=== PATIENT | male | born 1985 ===

== ENCOUNTER 2016-09-24 16:32 | Emergency (ER) | payer SELFPAY ==
[2016-09-24 16:32] VITALS: BMI 21.9
[2016-09-24 16:40] VITALS: BP 136/79; PULSE 77; RESP 18; TEMP 98.5; O2SAT 100
--- NOTE | 2016-09-24 17:48 | ED PDOC ---
HPI: General Adult Time Seen by Provider: 09/24/16 16:42 Chief Complaint (Nursing): ENT Problem Chief Complaint (Provider): Thyroid mass History Per: Patient History/Exam Limitations: no limitations Onset/Duration Of Symptoms: Days (x5) Current Symptoms Are (Timing): Still Present Additional History Per: Patient Additional Complaint(s): Navneet Siddiqui, a 31 years old male, sent by PMD (Jerrod Castillo) to the ED on 09/24/2016 for evaluation of a thyroid/throat mass. Reports the mass has been getting bigger over the past 5 days and difficulty swallowing solids and liquids. Denies fever, chest pain, shortness of breath or sore throat. Past Medical History Reviewed: Historical Data, Nursing Documentation, Vital Signs Vital Signs: Last Vital Signs Temp 98.5 F 09/24/16 16:38 Pulse 77 09/24/16 16:38 Resp 18 09/24/16 16:38 BP 136/79 09/24/16 16:38 Pulse Ox 100 09/24/16 21:35 - Medical History PMH: No Chronic Diseases - Surgical History Surgical History: No Surg Hx - Family History Family History: States: Unknown Family Hx - Social History Current smoker - smoking cessation education provided: No Ex-Smoker (has not smoked in the last 12 months): No Alcohol: None Drugs: Denies - Immunization History Hx Tetanus Toxoid Vaccination: No Hx Influenza Vaccination: No Hx Pneumococcal Vaccination: No - Home Medications Home Medications: Ambulatory Orders Medication Instructions Recorded Amoxicillin 875 mg PO BID #20 tablet 09/24/16 Naproxen [Naprosyn] 500 mg PO BID PRN #15 tablet 09/24/16 - Allergies Allergies/Adverse Reactions: Allergies Allergy/AdvReac Type Severity Reaction Status Date / Time No Known Allergies Allergy Verified 09/24/16 16:36 Review of Systems ROS Statement: Except As Marked, All Systems Reviewed And Found Negative ENT: Positive for: Other (thyroid/throat mass) Physical Exam - Reviewed Nursing Documentation Reviewed: Yes Vital Signs Reviewed: Yes - Physical Exam Appears: Positive for: Well, Non-toxic, No Acute Distress Skin: Positive for: Normal Color, Warm, DRY Eye Exam: Positive for: EOMI, Normal appearance, PERRL ENT: Positive for: Normal ENT Inspection, Pharynx Is (clear), TM Is/Are (intact , no erythema, no discharge, no fluid level), Other (no drooling, able to handle secretions). Negative for: Pharyngeal Erythema, Tonsillar Exudate, Tonsillar Swelling Neck: Positive for: Painless ROM. Negative for: Normal (enlarged anterior neck area, TTP, no erythema, no edema, no induration) Cardiovascular/Chest: Positive for: Regular Rate, Rhythm Respiratory: Positive for: Normal Breath Sounds. Negative for: Respiratory Distress Gastrointestinal/Abdominal: Positive for: Normal Exam, Bowel Sounds, Soft Back: Positive for: Normal Inspection Neurologic/Psych: Positive for: Alert, Oriented - Laboratory Results Result Diagrams: 09/24/16 17:45 09/24/16 17:45 - ECG O2 Sat by Pulse Oximetry: 100 - CT Scan/US CT neck Other Rad Studies (CT/US): Radiology Report Reviewed (Mild swelling of the left palatine tonsils, which could be due to mild tonsillitis. Recommend clinical correlation. No evidence of peritonsillar abscess. Otherwise, no evidence of significant acute process.) Thyroid ultrasound Other Rad Studies (CT/US): Radiology Report Reviewed (Unremarkable sonographic appearance of the thyroid gland. No focal nodules or significant thyromegaly noted. ) Medical Decision Making Medical Decision Makin:42 Initial Impression: Thyroid mass, Thyroiditis Initial Plan: * Thyroid US * CMP, CBC * PTT, Prothrombin time * TSH, T3, T4 * UA Scribe Attestation: Documented by Lorene Nair, acting as a scribe for Maria De Jesus Brady MD. Provider Scribe Attestation: All medical record entries made by the Scribe were at my direction and personally dictated by me. I have reviewed the chart and agree that the record accurately reflects my personal performance of the history, physical exam, medical decision making, and the department course for this patient. I have also personally directed, reviewed, and agree with the discharge instructions and disposition. Disposition - Clinical Impression Clinical Impression: Tonsillitis - Disposition Referrals: Ramone Hastings MD [Staff Provider] - Jerrod Nunez MD [Family Provider] - Disposition: Routine/Home Disposition Time: 20:43 Condition: STABLE Prescriptions: Amoxicillin 875 mg PO BID #20 tablet Naproxen [Naprosyn] 500 mg PO BID PRN #15 tablet PRN Reason: Pain, Moderate (4-7) Instructions: Tonsillitis (ED) Print Language: WELSH
[2016-09-24 18:00] LABS: BASO % 0.3 % (0.0-2.0); EOS % 0.4 % (0.0-4.0); HEMATOCRIT 52.1 % (35.0-51.0); LYMPH # 1.3 K/uL (1.0-4.3); LYMPH % 22.6 % (20.0-40.0); MEAN CELL VOLUME 102.7 fl (80.0-94.0); MEAN CORPUSCULAR HEMOGLOBIN 34.9 pg (27.0-31.0); MEAN PLATELET VOLUME 9.6 fl (7.2-11.7); MONO # 0.5 K/uL (0.0-0.8); MONO % 8.4 % (0.0-10.0); NEUT % 68.3 % (50.0-75.0); RED CELL DISTRIBUTION WIDTH 12.2 % (11.5-14.5); WHITE BLOOD COUNT 5.8 K/uL (4.8-10.8)
[2016-09-24 18:27] LABS: PARTIAL THROMBOPLASTIN TIME 28.6 SECONDS (23.3-32.5)
[2016-09-24 18:31] LABS: ALB/GLOB RATIO 1.3 (1.0-2.1); ALKALINE PHOSPHATASE 85 U/L (38-126); ALT/SGPT 41 U/L (21-72); AST/SGOT 36 U/L (17-59); BILIRUBIN,TOTAL 0.7 mg/dl (0.2-1.3); BLOOD UREA NITROGEN 18 mg/dl (9-20); CALCIUM 9.6 mg/dL (8.4-10.2); CARBON DIOXIDE 27 mmol/L (22-30); CHLORIDE 100 mmol/L (98-107); CHOLESTEROL 218 mg/dL (0-199); GFR AFRICAN-AMERICAN > 60; GLUCOSE,RANDOM 108 mg/dL (75-110); POTASSIUM 4.1 MMOL/L (3.6-5.0); SODIUM 142 mmol/l (132-148); TOTAL PROTEIN 7.8 G/DL (6.3-8.2)
[2016-09-24 19:01] LABS: THYROID STIMULATING HORMONE 1.48 mIU/ML (0.46-4.68)
[2016-09-24] MEDS ORDERED: Iohexol 300 100 ML IJ ONE (19:31)
[2016-09-24] MEDS ORDERED: Sodium Chloride 0.9% 50 ML IV ONE (19:31)
--- NOTE | 2016-09-24 19:38 | US ---
EXAM: US Soft Tissues Head and Neck, Thyroid. CLINICAL HISTORY: 31 years old, male; Screening exam; Medical clearance; Additional info: Enlarged thyroid TECHNIQUE: Real-time ultrasound scan of the thyroid gland and soft tissues of the neck with image documentation. EXAM DATE/TIME: 09/24/2016 5:32 PM COMPARISON: No relevant prior studies available. FINDINGS: Right lobe of the gland measures 3.9 x 1.1 x 1.3 cm. Thyroid isthmus measures 3 mm in thickness. Left lobe of the gland measures 4.1 x 1.2 x 1.3 cm. Parenchyma is homogeneous in appearance. No focal nodules are visualized. No abnormal calcifications seen. Margins of the gland are smooth. IMPRESSION: Unremarkable sonographic appearance of the thyroid gland. No focal nodules or significant thyromegaly noted.
--- NOTE | 2016-09-25 10:36 | CT ---
PROCEDURE: CT NECK WITH CONTRAST HISTORY: Neck swelling, dysphagia COMPARISON: None TECHNIQUE: CT of the neck with intravenous contrast. Coronal and sagittal reformats generated. Intravenous contrast dose: 100 mL Omnipaque Radiation dose: DLP 426.62 MGy-cm FINDINGS: NASOPHARYNX: Within normal limits. SUPRAHYOID NECK: There is symmetric enlargement of the palatine tonsils. There is no evidence of peritonsillar abscess or airway narrowing. Evaluation of the oral cavity is limited due to dental amalgam artifacts. The parapharyngeal spaces are normal. INFRAHYOID NECK: The larynx, hypopharynx, and supraglottic space are normal. Vocal cords intact. MASS: No evidence of mass or abnormal enhancement. GLANDS: Parotid and submandibular glands unremarkable. Normal size thyroid gland, without nodule. LYMPH NODES: There are reactive bilateral cervical chain lymph nodes. CERVICAL SPINE: No fracture or focal lesion. VASCULAR STRUCTURES: There is normal vascular enhancement. OTHER FINDINGS: None IMPRESSION: Findings are most compatible with acute tonsillitis. No evidence of peritonsillar abscess. A preliminary report was provided by [employer] services.
== END 2016-09-24 21:28 | disposition home or self-care (01) ==
LOC: H.ER 16:32
DX: J03.90 Acute tonsillitis, unspecified (principal)
CPT/HCPCS: 70491; 76536; 80053; 80061; 84436; 84443; 84480; 85025; 85610; 85730; 99282; Q9967